=== PATIENT | male | born 1985 | race Caucasian/White ===

== ENCOUNTER 2021-07-22 12:48 | Emergency (ER) | payer BC ==
[2021-07-22] MEDS ORDERED: CEPHALEXIN500 MG PO (13:15)
[2021-07-22] MEDS ORDERED: IBU800 MG PO (13:52)
== END 2021-07-22 13:53 | disposition home or self-care (01) ==
LOC: ER1 12:48
DX: S61.231A Puncture wound without foreign body of left index finger without damage to nail, initial encounter (principal); W29.8XXA Contact with other powered hand tools and household machinery, initial encounter
CPT/HCPCS: 73140; 99283